=== PATIENT | female | born 1980 | race Caucasian/White ===

== ENCOUNTER → 2019-05-15 | Outpatient (CLI) | payer OTHER, SELFPAY ==
[2019-05-15 11:08] LABS: EXAGEN MAILED SPECIMEN
[2019-05-15 13:08] LABS: Protein, Urine (Random) 10.2 mg/dL (<11.9); Protein:Creat Ratio 101 mg/g CRE (0-200)
== END | disposition home or self-care (01) ==
LOC: MTLAB 10:04
PROVIDERS: Family Provider Family Medicine; PCP Family Medicine; Referring Provider Internal Medicine Rheumatology; Visit Provider Internal Medicine Rheumatology
DX: R76.8 Other specified abnormal immunological findings in serum (principal); G43.909 Migraine, unspecified, not intractable, without status migrainosus; M35.7 Hypermobility syndrome
CPT/HCPCS: 36415; 82570; 84156

== ENCOUNTER → 2019-06-10 | Outpatient (CLI) | payer OTHER, SELFPAY ==
[2019-06-10 08:21] LABS: Bacteria 0 SEEN /hpf (None Seen); Mucous, Urine 0 SEEN /hpf (<or=2+); Red Blood Cells-Urine 0 SEEN /hpf (0-5); White Blood Cells 0 SEEN /hpf (0-5)
[2019-06-10 10:09] LABS: Color, Urine Yellow (Yellow); Glucose, Dipstick Normal (Normal); Ketone-Dipstick Negative (Negative); Leukocyte Esterase-Dipstick Negative /ul (Negative); Nitrite-Dipstick Negative (Negative); Occult Blood-Urine Negative /ul (Negative); Protein-Dipstick Negative (Negative); Specific Gravity, Urine 1.005 (1.002-1.030); Urine Bilirubin Dipstick Negative (Negative); Urine Clarity Clear (Clear); Urine Urobilinogen Normal (Normal); Urine pH 6.5 (5.0 - 8.0)
[2019-06-10 10:15] LABS: International Normalized Ratio 1.3; Prothrombin Time (Protime)PT. 15.9 SECONDS (11.7-14.9); Squamous Epithelial Cells - UA 0-5 SEEN /hpf (5-10)
[2019-06-10 10:16] LABS: Partial Thromboplast Time 29.7 Seconds (24.1-36.2)
[2019-06-12 03:06] LABS: Dilute Prothrombin Time (dPT) 50.8 sec (0.0-55.0); Dilute Russell Viper Venom 43.1 sec (0.0-47.0); PTT-LA 37.2 sec (0.0-51.9); Thrombin Time 19.3 sec (0.0-23.0); dPT Confirm Ratio 0.92 Ratio (0.00-1.40)
[2019-06-12 04:06] LABS: Hexagonal Phase Phospholipid 0 sec (0-11); Thrombin Time 18.7 sec (0.0-23.0)
[2019-06-12 12:53] LABS: Interpretation Comment: (.)
== END | disposition home or self-care (01) ==
LOC: MTLAB 08:12
PROVIDERS: Family Provider Family Medicine; PCP Family Medicine; Referring Provider Internal Medicine Rheumatology; Visit Provider Internal Medicine Rheumatology
DX: R76.8 Other specified abnormal immunological findings in serum (principal); G43.909 Migraine, unspecified, not intractable, without status migrainosus; M35.7 Hypermobility syndrome
CPT/HCPCS: 36415; 81001; 85598; 85610; 85670; 85730